=== PATIENT | female | born 1985 | race Caucasian/White ===

== ENCOUNTER 2017-01-16 14:31 | Inpatient (IN) | payer OTHER ==
[~2017-01-16] VITALS: Ht 167.6 cm; Wt 83.0 kg
[2017-01-16] VITALS (8 sets, daily range): BP systolic 126–134; BP diastolic 81–92
[2017-01-16] MEDS ORDERED: PRENCHW PO (14:41)
[2017-01-16] MEDS ORDERED: OMEP40CA2 PO (14:41)
[2017-01-16] MEDS ORDERED: CLAR10CA3 PO (14:41)
[2017-01-16 17:00] LABS: MEAN CORPUSCULAR HEMOGLOBIN 31.8 pg (27.0-33.0); MEAN CORPUSCULAR VOLUME 93.6 fl (80.0-96.0); RED CELL DISTRIBUTION WIDTH 13.8 % (11.5-14.5); WHITE BLOOD COUNT 8.8 K/mm3 (4.0-10.0)
[2017-01-16] MEDS ORDERED: miSOPROStol 50 MCG 1/2 TAB (S0191) As Ordered ONE (20:13)
[2017-01-16] MEDS: miSOPROStol 50 MCG 1/2 TAB (S0191) PO SCH (20:16)
[2017-01-17] VITALS (25 sets, daily range): BP systolic 101–143; BP diastolic 59–94
[2017-01-17] MEDS: miSOPROStol 50 MCG 1/2 TAB (S0191) PO SCH ×2 (00:12→04:10)
--- NOTE | 2017-01-17 08:53 | IPNPDOC ---
Text Note Date of Service The patient was seen on 01/17/17. NOTE SBAR from Dr Drummond at ~0800. IOL at 39+1 for Pre-E, no severe features. Chart reviewed. Has received 3 doses PO cytotec and has not as of 630 significantly changed her cx, reg ctx's with pain 4-5/10. Cx now 2/75/-2/vtx well applied, FB placed and with placement/insufflation, SROM occurred with clr fluid Pt vagal'd a bit, threw up X1 and her BP dropped to 100/70 and the pt had some variables and 4 lates, which we fixed with a fluid bolus 250 cc's, position change and O2. Maint 75 cc's/hr ordered for now. Her BP slowly came up to baseline and the tracing improved to mod [place], no further lates and accels present. Plan is to watch her FHT and if remains reassuring for >30-40 min and if ctx's are not adequate in freq, will start pitocin if appropriate/possible. Will cont to watch closely. Sessions VSClaribel, I+O Claribel RUIZ, I+O Laboratory Tests 01/16/17 16:39 Red Blood Count 3.88 L, Mean Corpuscular Volume 93.6, Mean Corpuscular Hemoglobin 31.8, Mean Corpuscular Hemoglobin Concent 34.0, Red Cell Distribution Width 13.8 SESSIONS,ARVIND Catalan MD Jan 17, 2017 08:53
--- NOTE | 2017-01-17 09:05 | IPNPDOC ---
Text Note Date of Service The patient was seen on 01/17/17. NOTE SBAR from Dr Drummond at ~0790. Chart reviewed. NST Cat 1, reg ctx's but somewhat spaced after epidural, getting good relief Cx , still needs second dose of PCN Plan on recheck in 1-2 hrs, sooner prn and likely AROM. Sessions VS,Claribel, I+O VS, Claribel I+O Laboratory Tests 01/16/17 16:39 Red Blood Count 3.88 L, Mean Corpuscular Volume 93.6, Mean Corpuscular Hemoglobin 31.8, Mean Corpuscular Hemoglobin Concent 34.0, Red Cell Distribution Width 13.8 SESSIONS,ARVIND Catalan MD Jan 17, 2017 09:05
[2017-01-17] MEDS ORDERED: NALBUPHINE HCL 10 MG/ML AMP (J2300) IM ONE (09:30)
[2017-01-17] MEDS ORDERED: LACTATED RINGER'S 1000 ML IV ONE (09:30)
[2017-01-17] MEDS ORDERED: PROMETHAZINE INJ 25 MG/ML VIAL (J2550) IV ONE (09:30)
[2017-01-17] MEDS ORDERED: NALBUPHINE HCL 10 MG/ML AMP (J2300) IV ONE (09:30)
[2017-01-17] MEDS ORDERED: LR 1,000 ML IV SCH (10:00)
[2017-01-17] MEDS ORDERED: OXYTOCIN DRIP 30 UNITS in APPROPRIATE DILUENT 1 EA IV SCH ×2 (10:45→23:40)
[2017-01-17] MEDS ORDERED: FENTANYL 2MCG/ML ROPIVACAINE 0.2% IN 0.9% NACL 200ML IVBAG As Ordered ONE (12:05)
[2017-01-17 12:17] LABS: MEAN CORPUSCULAR HEMOGLOBIN 32.3 pg (27.0-33.0); MEAN CORPUSCULAR VOLUME 92.4 fl (80.0-96.0); RED CELL DISTRIBUTION WIDTH 14.2 % (11.5-14.5); WHITE BLOOD COUNT 14.7 K/mm3 (4.0-10.0)
[2017-01-17] MEDS ORDERED: REFRIGERATOR IV KEYS XX PRN (14:30)
[2017-01-17] MEDS ORDERED: NALOXONE INJ 0.4 MG/1 ML VIAL (J2310) IV PRN ×3 (14:30→23:00)
[2017-01-17] MEDS ORDERED: FENTANYL/ROPIVACAINE/NACL BAG 200 ML EPIDURAL SCH (14:30)
[2017-01-17] MEDS ORDERED: diphenhydrAMINE INJ 50MG/ML VIAL (J1200) IV PRN (14:30)
[2017-01-17] MEDS ORDERED: ePHEDrine SULFATE 25 MG/5 ML(5MG/ML) SYRINGE IV PRN (14:30)
[2017-01-17] MEDS ORDERED: EPIDURAL/PCA KEYS XX PRN (14:30)
[2017-01-17] MEDS ORDERED: ONDANSETRON 4MG/2ML VIAL (J2405) IV PRN (14:30)
[2017-01-17] MEDS ORDERED: EPIDURAL COMMENT XX SCH (14:30)
[2017-01-17] MEDS ORDERED: LACTATED RINGER'S 1000 ML IV PRN (14:30)
--- NOTE | 2017-01-17 15:12 | IPNPDOC ---
Text Note Date of Service The patient was seen on 01/17/17. NOTE FB came out after only ~2 hrs Ate breakfast, now on 2 mu/min pitocin going, ctx's q 2-3 min NST mostly Cat 1, just had a run of 10 min of recurrent lates but RN able to fix them with routine measures. Reassuring currently. Good pain relief s/p epidural RN cx check after castellanos after epidural, /-1 Doing well, will recheck ~1600 Sessions VS,Claribel, I+O VSClaribel, I+O Laboratory Tests 01/16/17 16:39 Red Blood Count 3.88 L, Mean Corpuscular Volume 93.6, Mean Corpuscular Hemoglobin 31.8, Mean Corpuscular Hemoglobin Concent 34.0, Red Cell Distribution Width 13.8 01/17/17 12:03 Red Blood Count 3.81 L, Mean Corpuscular Volume 92.4, Mean Corpuscular Hemoglobin 32.3, Mean Corpuscular Hemoglobin Concent 35.0, Red Cell Distribution Width 14.2 Vital Signs Date Time Temp Pulse Resp B/P (MAP) Pulse Ox O2 Delivery O2 Flow Rate FiO2 01/17/17 11:14 97.4 18 01/17/17 11:04 88 131/76 (94) SESSIONS,ARVIND Catalan MD Jan 17, 2017 15:12
--- NOTE | 2017-01-17 16:34 | IPNPDOC ---
Text Note Date of Service The patient was seen on 01/17/17. NOTE NST Cat 1 last 90 min Cx 8-/-1 Doing well Recheck in ~2 hrs, sooner prn Sessions VS,Claribel, I+O VSClaribel I+O Laboratory Tests 01/16/17 16:39 Red Blood Count 3.88 L, Mean Corpuscular Volume 93.6, Mean Corpuscular Hemoglobin 31.8, Mean Corpuscular Hemoglobin Concent 34.0, Red Cell Distribution Width 13.8 01/17/17 12:03 Red Blood Count 3.81 L, Mean Corpuscular Volume 92.4, Mean Corpuscular Hemoglobin 32.3, Mean Corpuscular Hemoglobin Concent 35.0, Red Cell Distribution Width 14.2 Vital Signs Date Time Temp Pulse Resp B/P (MAP) Pulse Ox O2 Delivery O2 Flow Rate FiO2 01/17/17 11:14 97.4 18 01/17/17 11:04 88 131/76 (94) SESSIONS,ARVIND Catalan MD Jan 17, 2017 16:34
--- NOTE | 2017-01-17 18:27 | IPNPDOC ---
Text Note Date of Service The patient was seen on 01/17/17. NOTE NST Cat 2, mod [place] and reassuring, BL slowly increasing but no fevers noted Cx AL/100/0, LOP Recheck in 1 hr, sooner prn Sessions VS,Claribel, I+O VSClaribel I+O Laboratory Tests 01/17/17 12:03 Red Blood Count 3.81 L, Mean Corpuscular Volume 92.4, Mean Corpuscular Hemoglobin 32.3, Mean Corpuscular Hemoglobin Concent 35.0, Red Cell Distribution Width 14.2 Vital Signs Date Time Temp Pulse Resp B/P (MAP) Pulse Ox O2 Delivery O2 Flow Rate FiO2 01/17/17 11:14 97.4 18 01/17/17 11:04 88 131/76 (94) SESSIONS,ARVIND Catalan MD Jan 17, 2017 18:27
--- NOTE | 2017-01-17 19:40 | IPNPDOC ---
Text Note Date of Service The patient was seen on 01/17/17. NOTE NST Cat 1, pos accels, mod [place] Ctx's still difficult to monitor Cx C/C/+2/LOP Start pushing, watch FHT closely. Sessions VS,Claribel, I+O VSClaribel, I+O Laboratory Tests 01/17/17 12:03 Red Blood Count 3.81 L, Mean Corpuscular Volume 92.4, Mean Corpuscular Hemoglobin 32.3, Mean Corpuscular Hemoglobin Concent 35.0, Red Cell Distribution Width 14.2 Vital Signs Date Time Temp Pulse Resp B/P (MAP) Pulse Ox O2 Delivery O2 Flow Rate FiO2 01/17/17 18:44 126 16 115/68 (84) 01/17/17 18:36 98.9 SESSIONS,ARVIND Catalan MD Jan 17, 2017 19:40
[2017-01-17] MEDS: DOCUSATE SODIUM 100 MG CAP PO SCH (21:00)
--- NOTE | 2017-01-17 21:13 | IPNPDOC ---
Text Note Date of Service The patient was seen on 01/17/17. NOTE Pushing now for ~1 hr New tachycardia present, still afebrile, Periods of minimal variability, no decels in the last 40 min No real descent in 1 hr Will allow for 30-40 more minutes of pushing and if no signif change in station I will rec delivery Plan d/w pt and and they understand and are OK with this plan. Sessions VS,Claribel, I+O VSClaribel I+O Laboratory Tests 01/17/17 12:03 Red Blood Count 3.81 L, Mean Corpuscular Volume 92.4, Mean Corpuscular Hemoglobin 32.3, Mean Corpuscular Hemoglobin Concent 35.0, Red Cell Distribution Width 14.2 Vital Signs Date Time Temp Pulse Resp B/P (MAP) Pulse Ox O2 Delivery O2 Flow Rate FiO2 01/17/17 18:44 126 16 115/68 (84) 01/17/17 18:36 98.9 SESSIONSARVIND MD Jan 17, 2017 21:13
[2017-01-17] MEDS ORDERED: ceFAZolin 2 GM/D5W 50 ML IV BAG (J0690) As Ordered ONE (21:55)
[2017-01-17] MEDS ORDERED: AZITHROMYCIN INJ 500MG VIAL (J0456) As Ordered ONE (21:56)
[2017-01-17] MEDS ORDERED: BICITRA 30ML SOLN UDC As Ordered ONE (21:57)
--- NOTE | 2017-01-17 22:01 | IPNPDOC ---
Text Note Date of Service The patient was seen on 01/17/17. NOTE NST improved with better variability and accels but still mostly tachy except when pushing on hands/knees Station unchanged and still LOP I rec and they agree. Informed consent obtained and team notified. Sessions MD RUIZ,Claribel, I+O VSClaribel, I+O Laboratory Tests 01/17/17 12:03 Red Blood Count 3.81 L, Mean Corpuscular Volume 92.4, Mean Corpuscular Hemoglobin 32.3, Mean Corpuscular Hemoglobin Concent 35.0, Red Cell Distribution Width 14.2 Vital Signs Date Time Temp Pulse Resp B/P (MAP) Pulse Ox O2 Delivery O2 Flow Rate FiO2 01/17/17 18:44 126 16 115/68 (84) 01/17/17 18:36 98.9 SESSIONS,ARVIND Catalan MD Jan 17, 2017 22:01
[2017-01-17] MEDS ORDERED: BICITRA 30ML SOLN UDC PO ONE (22:15)
[2017-01-17] MEDS ORDERED: AZITHROMYCIN INJ 500 MG, VIAL MATE ADAPTER 1 EACH in D5W 250 ML IV ONE (22:15)
[2017-01-17] MEDS ORDERED: KETOROLAC 60 MG/2 ML VIAL (J1885) As Ordered ONE (22:54)
[2017-01-17] MEDS ORDERED: OXYTOCIN INJ 10 UNITS/ML VIAL (J2590) As Ordered ONE (22:54)
[2017-01-17] MEDS ORDERED: ONDANSETRON 4MG/2ML VIAL (J2405) As Ordered ONE (22:54)
[2017-01-17] MEDS ORDERED: PHENYLephrine HCL 500 MCG/5 ML (100MCG/ML) SYRINGE (J2370) As Ordered ONE (22:55)
[2017-01-17] MEDS ORDERED: METOCLOPRAMIDE INJ 10MG/2ML VIAL (J2765) IV PRN (23:00)
[2017-01-17] MEDS ORDERED: NALBUPHINE HCL 10 MG/ML AMP (J2300) IV PRN (23:00)
[2017-01-17] MEDS ORDERED: MORPHINE PRES-FREE INJ 10 MG/10 ML VIAL (J2274) As Ordered ONE (23:04)
[2017-01-17 23:31] LABS: CORD GAS HCO3 V 22.8 MEQ/L; CORD GAS O2 SAT A < 15.0 %; CORD GAS O2 SAT V 31.3 %; CORD GAS PCO2 V 52.9 mmHg; CORD GAS PH V 7.253 UNITS; CORD GAS PO2 V 17.2 mmHg; CORD GAS SBC V 18.9 MEQ/L; CORD GAS TCO2 V 24.5 MEQ/L
[2017-01-17 23:35] LABS: CORD GAS HCO3 A 22.4 MEQ/L; CORD GAS PCO2 A 61.4 mmHg; CORD GAS PH A 7.179 UNITS; CORD GAS PO2 A < 10.0 mmHg; CORD GAS TCO2 A 24.2 MEQ/L
[2017-01-17] MEDS: LR 1,000 ML IV SCH (23:40)
[2017-01-17] MEDS ORDERED: MEASLES,MUMPS,RUBELLA VACCINE INJ (MMR-II) (90707) SC SCH (23:45)
[2017-01-17] MEDS ORDERED: PERCOCET 5MG/325MG TAB PO PRN (23:45)
[2017-01-17] MEDS ORDERED: RHOGAM 300 MCG (1500 IU) INJ (J2790) IM SCH (23:45)
[2017-01-18] VITALS (9 sets, daily range): BP systolic 119–139; BP diastolic 73–88
[2017-01-18] MEDS ORDERED: fentaNYL 100 MCG/2 ML INJECTION (J3010) IV PRN (01:00)
[2017-01-18] MEDS ORDERED: ONDANSETRON 4MG/2ML VIAL (J2405) IV PRN (01:00)
[2017-01-18] MEDS ORDERED: MEPERIDINE INJ 25 MG/ML VIAL (J2175) IV PRN (01:00)
[2017-01-18] MEDS ORDERED: LR 1,000 ML IV SCH (01:00)
[2017-01-18] MEDS ORDERED: KETOROLAC 30 MG/ML VIAL (J1885) IV PRN (01:00)
[2017-01-18] MEDS: METOCLOPRAMIDE INJ 10MG/2ML VIAL (J2765) IV PRN (03:31)
[2017-01-18] MEDS: PERCOCET 5MG/325MG TAB PO PRN ×3 (03:31→20:58)
[2017-01-18] MEDS: KETOROLAC 30 MG/ML VIAL (J1885) IV SCH ×4 (05:07→22:52)
[2017-01-18 07:21] LABS: MEAN CORPUSCULAR HEMOGLOBIN 31.8 pg (27.0-33.0); MEAN CORPUSCULAR VOLUME 93.4 fl (80.0-96.0); RED CELL DISTRIBUTION WIDTH 13.7 % (11.5-14.5); WHITE BLOOD COUNT 17.3 K/mm3 (4.0-10.0)
[2017-01-18] MEDS: LR 1,000 ML IV SCH ×2 (08:49→15:40)
--- NOTE | 2017-01-18 09:05 | IPNPDOC ---
Text Note Date of Service The patient was seen on 01/18/17. NOTE POD1 prog note States feeling well, no complaints. No heavy VB. Pain controlled. Ambulatory. Harper in place. Bonding well and breast feeding well. VSSAF CTAB RRR Ut at U-2, firm Ext no [employer] CDI, bandage removed UO adeq CBC nl, expected this AM a/p: Doing well. Routine postop care. Sessions Claribel DEVRIES, I+O Claribel RUIZ I+O Laboratory Tests 01/17/17 12:03 Red Blood Count 3.81 L, Mean Corpuscular Volume 92.4, Mean Corpuscular Hemoglobin 32.3, Mean Corpuscular Hemoglobin Concent 35.0, Red Cell Distribution Width 14.2 01/18/17 06:44 Red Blood Count 3.29 L, Mean Corpuscular Volume 93.4, Mean Corpuscular Hemoglobin 31.8, Mean Corpuscular Hemoglobin Concent 34.0, Red Cell Distribution Width 13.7 Vital Signs Date Time Temp Pulse Resp B/P (MAP) Pulse Ox O2 Delivery O2 Flow Rate FiO2 01/18/17 04:15 17 01/18/17 03:31 Room Air 01/18/17 02:55 96.8 99 132/85 (101) 98 I&O- Last 24 Hours up to 6 AM 01/18/17 06:00 Output Total 600 ml Balance -600 ml SESSIONS,ARVIND Catalan MD Jan 18, 2017 09:05
[2017-01-18] MEDS: PRENATAL VITAMINS CHEWABLE TABLET PO SCH (11:11)
[2017-01-18] MEDS: DOCUSATE SODIUM 100 MG CAP PO SCH ×2 (11:11→20:59)
[2017-01-18] MEDS: ONDANSETRON 4MG/2ML VIAL (J2405) IV PRN ×2 (15:30→20:57)
[2017-01-19 01:58] VITALS: BP 116/76
[2017-01-19 06:02] VITALS: BP 136/84
[2017-01-19] MEDS: METOCLOPRAMIDE INJ 10MG/2ML VIAL (J2765) IV PRN (06:02)
[2017-01-19] MEDS: PERCOCET 5MG/325MG TAB PO PRN ×3 (06:02→20:08)
[2017-01-19] MEDS: DOCUSATE SODIUM 100 MG CAP PO SCH ×2 (07:49→20:11)
[2017-01-19] MEDS: IBUPROFEN 800 MG TAB PO SCH ×3 (07:49→23:10)
[2017-01-19] MEDS: PRENATAL VITAMINS CHEWABLE TABLET PO SCH (07:49)
[2017-01-19] MEDS: ONDANSETRON 4 MG TAB (S0181) PO PRN ×2 (11:22→20:09)
[2017-01-19 18:00] VITALS: BP 121/71
[2017-01-20] MEDS: ONDANSETRON 4 MG TAB (S0181) PO PRN (05:39)
[2017-01-20] MEDS: PERCOCET 5MG/325MG TAB PO PRN (05:40)
[2017-01-20 06:23] VITALS: BP 131/77
[2017-01-20] MEDS: IBUPROFEN 800 MG TAB PO SCH (07:15)
[2017-01-20] MEDS: PRENATAL VITAMINS CHEWABLE TABLET PO SCH (07:38)
[2017-01-20] MEDS: DOCUSATE SODIUM 100 MG CAP PO SCH (07:39)
--- NOTE | 2017-01-20 08:01 | RO ---
DATE OF PROCEDURE: 01/16/2017 PREPROCEDURE DIAGNOSIS: Arrest of descent after 2 hours of pushing and known LOP presentation. POSTPROCEDURE DIAGNOSIS: Arrest of descent after 2 hours of pushing and known LOP presentation. PROCEDURE: Primary delivery. SURGEON: Dr. Johnson Barriga. CLOTHING MANAGER: Dr. Ferrell. ANESTHESIA: Epidural. ESTIMATED BLOOD LOSS: 600 mL. DRAINS: Harper catheter with 50 mL of urine. FLUIDS REPLACED: Lactated ringers 1200 mL. PREOPERATIVE ANTIBIOTICS: Ancef 2 grams and azithromycin 500 mg. SPECIMENS: None. FINDINGS: Female infant wedged into the pelvis. Pfannenstiel skin incision, low transverse uterine incision, 8 and 9, 3676 grams, 8 pounds 2 ounces, clear fluid. INDICATION: Patient was admitted yesterday afternoon for pre-eclampsia without severe features and an induction started with Cytotec overnight. I placed a Harper bulb this morning at which time the membranes ruptured. She was on very low lose Pitocin throughout the afternoon and evening and continued to make steady change. She then pushed for 2 hours in the LOP position and did not move the baby significantly through the canal past 0 station. Baby was not low enough nor in the correct position for an operative vaginal delivery, therefore, section was recommended and informed consent was obtained. PROCEDURE: Patient was taken to the operating room with an IV in place. A Harper catheter was then placed and the epidural was bolused on the way to the room. She was prepped and draped in normal sterile fashion and passed the no pain test with Allis clamps on her lower abdomen. A Pfannenstiel skin incision was then carried down to the fascia which was nicked in the midline and extended bilaterally the extent of the skin incision. Cat clamps were used to tent up the superior and inferior edges of the fascial incision and these were dissected off the underlying rectus muscles sharply without difficulty. The patient's rectus muscles were then in the midline and I entered the abdomen with one digit through the peritoneal layer without difficulty. Quick exploration showed no adhesive disease and a stretching maneuver created an adequate peritoneal window. Bladder blade was placed. Bladder flap was created and a lower transverse uterine incision was performed with noted clear fluid. ' s head was tightly wedged into the pelvis but I was able to gently place by fingers over the infant's head and slowly disengage the vacuum suctioned head from the pelvis. With the flexed head and with fundal pressure from my assistant auditor Dr. Ferrell, we were able to delivery the vigorous infant through the uterine and skin incisions. Cord was doubly clamped. Cord blood was obtained. Cord gases were obtained and the was handed off to the awaiting resuscitation team. The placenta was delivered with traction and fundal massage with Pitocin running wide open and the uterus was then delivered through the abdomen wrapped in a warm sponge. Two dry sponges were used to clear the uterus of all clots and debris and a running suture of locked #0 Vicryl from left to right was used to close the uterine incision. Imbrication stitch of #0 Monocryl was then used for the same. The secondary imbrication closure was utilized to cross the entire uterine incision. Irrigation was performed behind the uterus. The uterus was returned to the abdomen. After hemostasis was confirmed, the uterine incision and the colic gutters were cleared bilaterally of any clots and debris. One final inspection of the uterine incision showed hemostasis. The peritoneum was closed from superior to inferior without difficulty using running #3-0 Vicryl. The rectus bellies were hemostatic and the fascia was closed from left to right without difficulty using running #0 Vicryl. Copious irrigation of the subcutaneous space was performed and then this area was made to be hemostatic. It was then closed with #3-0 Vicryl and the skin was closed with a #4-0 running subcuticular stitch from left to right. Steri-Strips were placed over the incision and a pressure dressing as well. Fundal massage showed a firm uterus at the umbilicus and a bimanual exam cleared the vagina of all clots and debris. All sponge, needle and instrument counts were correct times three. MYRNAD
--- NOTE | 2017-01-20 08:57 | DS.PDOC ---
Discharge Summary General Date of Admission Jan 16, 2017 at 14:31 Date of Discharge [id number] Discharge Summary PROCEDURES PERFORMED DURING STAY: Primary Delivery after arrest of descent, occiput posterior ADMITTING DIAGNOSIS: 1. Induction for post-dates DISCHARGE DIAGNOSES: 1. Healthy HOSPITAL COURSE: Admitted for uncomplicated induction. Pushed for 2 hours, no descent past 0 station. Occiput posterior. Uncomplicated primary delivery, see operative note. DISCHARGE MEDICATIONS: Motrin, Percocet, Colace, Lanolin, Reglan Physical exam: see note from this morning LABORATORY DATA: Please see below. ACTIVITY: as tolerated. Nothing in vagina for 6 weeks. No bathing for 4 weeks. No driving for 2 weeks. DIET: regular DISPOSITION:stable TIME SPENT ON DISCHARGE: Greater than 15 minutes. Sessions Vital Signs/I&Os Vital Signs Date Time Temp Pulse Resp B/P (MAP) Pulse Ox O2 Delivery O2 Flow Rate FiO2 01/20/17 06:23 97.2 86 16 131/77 (95) 01/19/17 18:00 98 01/19/17 06:02 Room Air Discharge Medications Scheduled Loratadine (Claritin) 10 Mg Cap, 10 MG PO DAILY, (Reported) Multivitamins/ ( 19) 1 Chw Chw, 1 CHW PO DAILY, (Reported) Omeprazole (Omeprazole) 40 Mg Cap, 40 MG PO DAILY for HEARTBURN, (Reported) Allergies Coded Allergies: Sulfa Antibiotics (Verified Allergy, Intermediate, 01/16/17) SESSIONSARVIND MD Jan 20, 2017 08:57
--- NOTE | 2017-01-20 09:04 | IPNPDOC ---
Text Note Date of Service The patient was seen on 01/20/17. NOTE POD3 prog note States feeling well, no complaints. No heavy VB. Pain controlled. Ambulatory. Voiding. Bonding well and breast feeding well. VSSAF CTAB RRR Ut at U-3, firm Ext no [employer] CDI a/p: Doing well. Discharge. Sessions VS,Claribel, I+O VS, Claribel, I+O Vital Signs Date Time Temp Pulse Resp B/P (MAP) Pulse Ox O2 Delivery O2 Flow Rate FiO2 01/20/17 06:23 97.2 86 16 131/77 (95) 01/19/17 18:00 98 01/19/17 06:02 Room Air SESSIONS,ARVIND Catalan MD Jan 20, 2017 09:04
[2017-01-20] MEDS ORDERED: COLA100C5 PO (09:19)
[2017-01-20] MEDS ORDERED: REGL10TA6 PO (09:19)
[2017-01-20] MEDS ORDERED: IBUP-1114 PO (09:19)
[2017-01-20] MEDS ORDERED: OXYC1TAB23 PO (09:19)
== END 2017-01-20 09:55 | disposition home or self-care (01) | DRG 766 ==
LOC: M LDI 14:31 → M OBS 01-18 01:40
PROVIDERS: ADMIT Obstetrics & Gynecology; ATTEND Obstetrics & Gynecology
PROC: 10D00Z1 Extraction of Products of Conception, Low, Open Approach (ICD-10-PCS; principal; 2017-01-16)
PROC: 3E0DXGC Introduction of Other Therapeutic Substance into Mouth and Pharynx, External Approach (ICD-10-PCS; 2017-01-16)
PROC: 3E033VJ Introduction of Other Hormone into Peripheral Vein, Percutaneous Approach (ICD-10-PCS; 2017-01-16)
DX: O14.94 Unspecified pre-eclampsia, complicating childbirth (principal); Z37.0 Single live birth; O32.4XX0 Maternal care for high head at term, not applicable or unspecified; O64.0XX0 Obstructed labor due to incomplete rotation of fetal head, not applicable or unspecified; Z88.2 Allergy status to sulfonamides; O48.0 Post-term pregnancy; Z3A.40 40 weeks gestation of pregnancy

== ENCOUNTER → 2017-10-11 | Outpatient (REF) | payer OTHER | LOC: M LAB REF 13:39 | DX: J02.9 Acute pharyngitis, unspecified (principal) ==